=== PATIENT | female | born 2000 | race Caucasian/White ===

== ENCOUNTER 2020-11-10 17:55 | Emergency (ER) | payer OTHER ==
[~2020-11-10] VITALS: Ht 162.6 cm; Wt 95.5 kg
[2020-11-10 18:18] VITALS: Ht 162.6 cm; Wt 95.5 kg
[2020-11-10] MEDS ORDERED: LEXAPRO10 MG PO (18:20)
== END 2020-11-10 19:30 | disposition left against medical advice (07) ==
LOC: D.ER 17:55
DX: R10.9 Unspecified abdominal pain (principal)